=== PATIENT | male | born 1980 | race Caucasian/White ===

== ENCOUNTER 2017-10-27 19:27 | Emergency (ER) | payer MEDICAID ==
[~2017-10-27] VITALS: Ht 177.8 cm; Wt 78.2 kg
[2017-10-27 20:23] VITALS: BP 128/78
== END 2017-10-27 20:54 | disposition home or self-care (01) ==
LOC: EMS 19:29
DX: H66.92 Otitis media, unspecified, left ear (principal); H60.92 Unspecified otitis externa, left ear
CPT/HCPCS: 99283